=== PATIENT | female | born 1975 | race Caucasian/White ===

== ENCOUNTER 2020-06-26 14:00 | Emergency (ER) | payer OTHER ==
[2020-06-26 14:18] VITALS: BP 129/76; RESP 20; TEMP 98.1
[2020-06-26 14:44] VITALS: PULSE 62
[2020-06-26 15:51] LABS: Amorphous Sediment,Urine Rare /hpf; Appearance,Urine Cloudy (Clear); Bacteria,Urine Rare /hpf; Bilirubin,Urine Negative (Negative); Blood,Urine Negative (Negative); Color,Urine Light Yellow; Glucose,Urine (UA) Negative (Negative); Ketones,Urine Negative (Negative); Leukocyte Esterase,Urine Negative (Negative); Nitrite,Urine Negative (Negative); PH, Urine 6.5 (5.0-8.0); Protein,Urine Negative (Negative); RBC,Urine 3 /hpf (0-5); Specific Gravity,Urine 1.007 (1.001-1.035); Squamous Epithelial Cell,Urine 11 /hpf (0-4); Urobilinogen,Urine <2.0 mg/dL (<2.0); WBC,Urine 3 /hpf (0-5)
[2020-06-26] MEDS ORDERED: metroNIDAZOLE 500 MG TAB PO STA (16:16)
[2020-06-26] MEDS ORDERED: cefTRIAXone 250 MG VIAL IM STA (16:16)
[2020-06-26] MEDS ORDERED: AZITHROMYCIN 500 MG TAB PO STA (16:16)
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
== END 2020-06-26 17:12 | disposition home or self-care (01) ==
LOC: EC 14:00
DX: T74.21XA Adult sexual abuse, confirmed, initial encounter (principal); Z71.1 Person with feared health complaint in whom no diagnosis is made; F41.9 Anxiety disorder, unspecified; F31.9 Bipolar disorder, unspecified; F17.200 Nicotine dependence, unspecified, uncomplicated; Z79.899 Other long term (current) drug therapy; Z88.0 Allergy status to penicillin; Z85.41 Personal history of malignant neoplasm of cervix uteri
CPT/HCPCS: 81001; 81025; 87808; 87491; 87591; 87070; 99284; 96372; J0696